=== PATIENT | female | born 2005 | race African-American/Black ===

== ENCOUNTER 2024-01-04 00:29 | Emergency (ER) | payer SELFPAY ==
[2024-01-04] MEDS ORDERED: Ondansetron ODT 4 MG TAB ONE (00:48)
[2024-01-04] MEDS ORDERED: Acetaminophen 500 MG TAB ONE (00:48)
[2024-01-04 00:54] LABS: Pregnancy Test - Urine (BHCG) Indeterminate (Negative); Pregu Control Background? CLEAR/WHITE (CLR/WHITE); Pregu Control Bar Appear? YES (CONTROL BAR); Specific Gravity 1.026 (1.002-1.036)
[2024-01-04 00:55] LABS: Bilirubin Small (Negative); Blood, Urine Negative (Negative); Glucose, Urine (Dipstick) Negative (Negative); Ketone, Urine 40 mg/dL (Negative); Leukocyte Small (Negative); Nitrite Negative (Negative); Protein, Urine (Dipstick) Trace mg/dL (Neg-Trace); Urobilinogen 0.2 mg/dL (Less than 2)
[2024-01-04 00:56] LABS: Clarity Slightly Cloudy (Clear); Specific Gravity, Urine 1.026 (1.002-1.036)
[2024-01-04 00:57] LABS: Bacteria/HPF Rare-Few HPF (None Seen); CAUTI Indications for Culture Pelvic or flank pain; Mucous/LPF 3+ LPF (<2+); RBC/HPF 0-3 HPF (0-3); WBC/HPF 21-50 HPF (0-3)
[2024-01-04 00:58] LABS: Urine Culture Reflex Yes Yes
== END 2024-01-04 01:04 | disposition home or self-care (01) ==
LOC: MADERS 00:29
DX: S30.1XXA Contusion of abdominal wall, initial encounter (principal); S90.31XA Contusion of right foot, initial encounter; W54.1XXA Struck by dog, initial encounter
CPT/HCPCS: 81001; 81025; 87077; 87086; 99283; Q0162